=== PATIENT | female | born 1980 | race Caucasian/White ===

== ENCOUNTER 2018-06-25 01:00 | Outpatient (CLI) | END 2018-06-25 08:15 | disposition home or self-care (01) ==

== ENCOUNTER 2018-11-03 09:35 | Outpatient (CLI) | payer MEDICAID ==
[~2018-11-03] VITALS: Ht 152.4 cm; Wt 78.0 kg
[~2018-11-03 09:35] MED LIST: PREN1TAB9 PO
[2018-11-03 10:01] VITALS: BP 112/70; PULSE 90; RESP 18; Ht 152.4 cm; Wt 78.0 kg
--- NOTE | 2018-11-03 12:16 | TRIAGE ---
OB Triage Datetime Report Generated by CPN: 11/03/2018 12:15 Datetime: 11/03/2018 11:43 Stage of : OB Triage Datetime: 11/03/2018 11:00 Stage of : OB Triage Labor Evaluation Frequency: 0 Monitor Mode: External Pattern: Normal: <= 5 Contractions in 10 Minutes Resting Tone [place]: Relaxed Heart Rate FHR Baseline Rate: 155 Monitor Mode: External US Variability: Moderate 6-25 bpm Accelerations: 15X15 Decelerations: None Category: Category I Pain Presence: None/Denies Pain Type: N/A Datetime: 11/03/2018 09:58 Stage of : OB Triage Maternal Assessment Level of Consciousness: Fully Conscious DTR's/Clonus: DTRs 2+; No Clonus Headache: Denies Blurred Vision: No Respiratory Effort: Unlabored; Regular Rhythm; Equal Expansion Breath Sounds, Left: Clear and Equal Breath Sounds, Right: Clear and Equal Nausea/Vomiting: Denies RUQ Epigastric Pain: Denies Lower Extremities Edema: None Degree: None Upper Extremities Edema: None Degree: None Facial Edema: None Temperature Route: Oral Fall Risk Assessment History of Falling: (0) No Secondary Diagnosis: (0) No Ambulatory Aid: (0) Bedrest/Nurse Assist IV Therapy: (0) No Gait: (0) Normal/Bedrest/Immobile Mental Status: (0) Oriented to Own Ability Fall Score: 0 Fall Risk Score Definition: No Risk: No action required Labor Evaluation Frequency: none Monitor Mode: External Heart Rate FHR Baseline Rate: 150 Monitor Mode: External US Pain Assessment Pain Scale: 0 Datetime: 11/03/2018 09:56 Time of Arrival: 11/03/2018 09:28 EGA: 38.1 Arrived By: Ambulatory Arrived From: Home Chief Complaint: follow up for low [place], AMA Movement: Present Contractions: Denies/Absent Rupture of Membranes: Denies Vaginal Discharge: Denies Recent Sexual Intercouse: Denies Abdominal Trauma: Not Applicable Patient Complaints: Other Additional Patient Complaints: to triage for NST/ BPP for low platelets and AMA Time Provider Notified: 11/03/2018 10:57 Provider Notified: dr. ro Initial Plan: efm/ u/s
--- NOTE | 2018-11-14 12:31 | PN ---
Triage Information Date/Time Reason for visit: Uterine contractions Weeks of Gestation 38 weeks and 1 day /Para Diabetes: none Hypertention: none Objective Heart Rate: 130's Contractions: >10 Minutes Apart Disposition: Discharge Assessment/Plan 37 years old 4 para 3003 with single intrauterine at 38 weeks and 1 day complaining of uterine contractions. She states good movement. She denies nausea, vomiting, shortness of breath, chest pain, headache, visual changes, vaginal bleeding or LOF. FHR: No sign of metabolic acidosis- Category I. She has occasional uterine contractions. Sterile vaginal exam /-3/cephalic/intact membrane. No cervical changes in 2 hours interval. Symptoms and sign of labor, preeclampsia, kick count discussed with patient, she voiced understanding. All of her questions answered. -Patient was discharged home in stable condition with the appropriate discharge instructions provided. I would like patient to have close follow-up with her primary physician or outpatient clinic in 1-2 days or return to triage for worsening symptoms or any other urgent concerns. ENRIKE RAIN Nov 14, 2018 12:31
== END 2018-11-03 11:55 | disposition home or self-care (01) ==
LOC: OBT 09:35 → L-D 09:36 → OBT 11:55
PROVIDERS: ATTEND Obstetrics & Gynecology
DX: O62.9 Abnormality of forces of labor, unspecified (principal); O09.523 Supervision of elderly multigravida, third trimester; Z3A.38 38 weeks gestation of pregnancy
CPT/HCPCS: 76815; 76818; Z7500; G0463

== ENCOUNTER 2018-11-08 10:09 | Inpatient (IN) | payer MEDICAID ==
[~2018-11-08] VITALS: Ht 152.4 cm; Wt 78.1 kg
[2018-11-08 10:46] VITALS: Ht 152.4 cm; Wt 78.1 kg
[2018-11-08 10:47] VITALS: BP 114/67; PULSE 107
--- NOTE | 2018-11-08 14:21 | HP ---
Date/Time of Note Date/Time of Note DATE: 11/08/18 TIME: 14:20 OB - History Hx of Present Free Text/Dictation 38+6 wks in labor : 4 Para: 3 Care: Good Care Ultrasounds: Normal mid trimester US Obstetrical Complications: None Medical Complications: None Past Family/Social History * Past Medical, Surgical, Family and Obstetric Histories reviewed from chart. OB Admission Exam Vital Signs Vital Signs Vital Signs Date Temp Pulse Resp B/P (MAP) Pulse Ox O2 O2 Flow FiO2 Time Delivery Rate 11/08/18 98.4 107 114/67 10:47 (83) Physical Exam Abdomen: WNL Cervical Dilatation: 4cm Effacement: 75% Station: -1 Membranes: Intact Heart Rate: 140's Accelerations: Accelerations Present Decelerations: No Decelerations Varibility: Moderate Contractions on Admission: 6-10 Minutes Apart OB Assessment/Plan Reason for admission: observation Other Assessment: PMH Denies PSH Denies Plan: Expectant Management ANURADHA JONES M.D. Nov 08, 2018 14:21
[2018-11-08] MEDS ORDERED: LIDOCAINE 1% (MPF) 30 ML INJ INJ PRN (15:00)
[2018-11-08] MEDS ORDERED: BUTORPHANOL 2 MG INJ IV PRN (15:00)
[2018-11-08] MEDS ORDERED: OXYTOCIN 30 UNITS/LR 500 ML IV PRN (15:00)
[2018-11-08] MEDS ORDERED: BUTORPHANOL 1 MG INJ IV PRN (15:00)
[2018-11-08] MEDS ORDERED: CARBOPROST 250 MCG INJ IM PRN (15:00)
[2018-11-08] MEDS ORDERED: METHYLERGONOVINE 0.2 MG INJ IM PRN (15:00)
[2018-11-08] MEDS ORDERED: OXYTOCIN 30 UNITS/LR 500 ML IV SCH ×2 (15:00)
[2018-11-08] MEDS ORDERED: MISOPROSTOL 200 MCG TAB PR PRN (15:00)
[2018-11-08] MEDS: LACTATED RINGER'S 1,000 ML IV SCH (15:51)
[2018-11-09] MEDS: LACTATED RINGER'S 1,000 ML IV SCH (00:34)
[2018-11-09] MEDS: OXYTOCIN 30 UNITS/LR 500 ML IV SCH ×2 (01:20→11:20)
[2018-11-09] MEDS ORDERED: LACTATED RINGER'S 1,000 ML IV* SCH (01:20)
--- NOTE | 2018-11-09 01:25 | LDN ---
Date/Time of Note Date/Time of Note DATE: 11/09/18 TIME: 01:24 Delivery Summary of a viable baby girl weighing 3110 grams or 6# 14 oz, 18.75" long, and with Apgars of 9/9. Weeks of Gestation 39w Placenta Delivered: Spontaneously Meconium: none Episiotomy: No Perineal laceration: 0 Anesthesia type: None Estimated blood loss: 150 Sponge & Needle done & correct: Yes All needle counts correct: Yes Any foreign bodies felt in the: No (vagina) Infant Delivery Information Sex Infant Sex: female Apgars 1 Minute: 9 5 Minute: 9 Suctioning Nose & mouth suctioned at denisha: Yes Delee suction performed: No Umbilical Cord Umbilical cord with: 3 Vessels Cord presentations: no nuchal cord Cord Blood was obtained: Yes Mother & Baby Disposition Disposition Mom & Baby to Maternity; Good: Yes Baby to NICU: No JASON CHAUDHARI MD Nov 09, 2018 01:25
[2018-11-09] MEDS ORDERED: HYDROCODONE/APAP (5/325) TAB PO PRN (01:30)
[2018-11-09] MEDS ORDERED: METHYLERGONOVINE 0.2 MG INJ IM PRN (01:30)
[2018-11-09] MEDS ORDERED: CARBOPROST 250 MCG INJ IM PRN (01:30)
[2018-11-09] MEDS ORDERED: MISOPROSTOL 200 MCG TAB PR PRN (01:30)
[2018-11-09] MEDS ORDERED: OXYTOCIN 30 UNITS/LR 500 ML IV PRN (01:30)
[2018-11-09] MEDS ORDERED: LANOLIN HPA 1 PKT TOP PRN (01:30)
[2018-11-09 03:00] VITALS: BP 106/55; PULSE 75; RESP 18
[2018-11-09] MEDS: IBUPROFEN 600 MG TAB PO SCH ×3 (06:00→17:37)
[2018-11-09 08:00] VITALS: BP 98/53; PULSE 68; RESP 18
[2018-11-09 12:00] VITALS: BP 99/53; PULSE 60; RESP 18
[2018-11-09 16:32] VITALS: BP 99/63; PULSE 70; RESP 18
[2018-11-09 19:10] VITALS: BP 107/55; PULSE 69; RESP 18
--- NOTE | 2018-11-10 03:08 | DELSUM ---
Delivery Summary A-C Datetime Report Generated by CPN: 11/10/2018 03:08 DELIVERY PERSONNEL Web Content Manager: Monique, Ilana MATERNAL INFORMATION Delivery Anesthesia: None Medications in Delivery: LR with 30units Pitocin Delivery QBL (ml): 150 Placenta Cultured: No Maternal Complications: Other Other Maternal Complications: Low PLT 125 LABOR SUMMARY EDC: 11/16/2018 00:00 No. Babies in Womb: 1 Attempted: No Labor Anesthesia: None LABOR INFORMATION Reason for Induction: Not Applicable Onset of Labor: 11/08/2018 04:00 Complete Dilatation: 11/09/2018 00:47 Oxytocin: N/A Group B Beta Strep: Negative Antibiotics # of Doses: 0 Steroids Given: None Reason Steroids Not Administered: Not Applicable MEMBRANES Membranes Rupture Method: Spontaneous Rupture of Membranes: 11/09/2018 00:35 Length of Rupture (hr): 0.27 Amniotic Fluid Color: Clear Amniotic Fluid Amount: Small Amniotic Fluid Odor: None STAGES OF LABOR Stage 1 hr: 20 Stage 1 min: 47 Stage 2 hr: 0 Stage 2 min: 4 Stage 3 hr: 0 Stage 3 min: 2 Total Time in Labor hr: 20 Total Time in Labor min: 53 VAGINAL DELIVERY Episiotomy: None Laceration Extension: N/A Laceration Type: None Laceration Repair: No Initial Vag Sponge Count: 10 Final Vag Sponge Count: 10 Initial Vag Sharps Count: 1 Final Vag Sharps Count: 1 Sponge Count Correct: Yes Sharps Count Correct: Yes Count Comment: 15 instruments BABY A INFORMATION Infant Delivery Date/Time: 11/09/2018 00:51 Method of Delivery: Vaginal Born in Route : No : N/A Forceps: N/A Vacuum Extraction: N/A Shoulder Dystocia : No SHOULDER DYSTOCIA BABY A Delivery Date/Time: 11/09/2018 00:51 PRESENTATION/POSITION BABY A Presentation: Cephalic Cephalic Presentation: Vertex Breech Presentation: N/A PLACENTA INFORMATION BABY A Placenta Delivery Time : 11/09/2018 00:53 Placenta Method of Delivery: Spontaneous Placenta Status: Delivered SCORES BABY A Heart Rate 1 min: >100 bpm Resp Effort 1 min: Good Cry Reflex Irritability 1 min: Cough/Sneeze/Pulls Away Muscle Tone 1 min: Active Motion Color 1 min: Body [place], Extremit Blue Resuscitation Effort 1 min: Tactile Stimulation SCORE 1 MIN: 9 Heart Rate 5 min: >100 bpm Resp Effort 5 min: Good Cry Reflex Irritability 5 min: Cough/Sneeze/Pulls Away Muscle Tone 5 min: Active Motion Color 5 min: Body [place], Extremit Blue Resuscitation Effort 5 min: N/A SCORE 5 MIN: 9 INFANT INFORMATION BABY A Gestational Age at Delivery: 39.0 Gestational Status: Full Term- 39- 40.6 Weeks Outcome : Liveborn Condition : Stable Infant Sex: Female IDENTIFICATION/MEDS BABY A ID Band Number: [id number] ID Band Location: Right Leg; Left Arm Sensor Applied: Yes Sensor Number: [id number] Sensor Location : Cord Clamp Vitamin K Given : Not Given Erythromycin Given: Not Given WEIGHT/LENGTH BABY A Birthweight (gm): 3110 Infant Weight (lb): 6 Weight (oz): 14 Length (in): 18.75 Infant Length (cm): 47.63 CORD INFORMATION BABY A No. Cord Vessels: 3 Nuchal Cord : N/A Cord Blood Taken: Yes Suction: Mouth; Nose
[2018-11-10 03:55] VITALS: BP 97/51; PULSE 72; RESP 18
[2018-11-10] MEDS: IBUPROFEN 600 MG TAB PO SCH ×4 (05:48→18:00)
[2018-11-10 07:45] VITALS: BP 93/60; PULSE 72; RESP 17
[2018-11-10 15:52] VITALS: BP 98/60; PULSE 67; RESP 16
--- NOTE | 2018-11-10 15:54 | PN ---
Date/Time of Note Date/Time of Note DATE: 11/10/18 TIME: 15:47 OB Subjective Subjective Subjective PPD# 1 Patient is doing well. She denies nausea, vomiting, shortness of breath, chest pain, headache. She has been ambulating without difficulty, tolerating regular diet. Pain is well controlled on current medications OB Objective Objective Objective Vital Signs Date Temp Pulse Resp B/P (MAP) Pulse Ox O2 O2 Flow FiO2 Time Delivery Rate 11/10/18 97.6 72 17 93/60 (71) Room Air 07:45 General: AAO X 3, comfortable, NAD, appropriate mood and affect. ABD: +BS. Soft, non-tender. Uterus 2 cm below umbilicus Flank: No CVA tenderness (B/L) LE: Mild edema. No clubbing, cyanosis, thigh or calf tenderness (B/L). Homans 'sign is negative Laboratory Tests Test 11/09/18 08:59 11/10/18 04:40 Lab Scanned Report REFERENCE LAB [id number] White Blood Count 8.8 10^3/ul Red Blood Count 3.78 10^6/ul Hemoglobin 11.6 g/dl Hematocrit 35.0 % Mean Corpuscular Volume 92.6 fl Mean Corpuscular Hemoglobin 30.7 pg Mean Corpuscular Hemoglobin Concent 33.1 g/dl Red Cell Distribution Width 13.7 % Platelet Count 138 10^3/UL Mean Platelet Volume 11.0 fl Immature Granulocytes % 0.600 % Neutrophils % 58.4 % Lymphocytes % 32.7 % Monocytes % 6.9 % Eosinophils % 1.1 % Basophils % 0.3 % Nucleated Red Blood Cells % 0.0 /100WBC Immature Granulocytes # 0.050 10^3/ul Neutrophils # 5.1 10^3/ul Lymphocytes # 2.9 10^3/ul Monocytes # 0.6 10^3/ul Eosinophils # 0.1 10^3/ul Basophils # 0.0 10^3/ul Nucleated Red Blood Cells # 0.0 10^3/ul OB Assessment/Plan Other plan: 37 years old 4 para 4004 s/p normal vaginal delivery. PPD#1 - AF, VSS - Contraception methods with R/B/A/FR discussed - Continue care - Discharge home tomorrow - Rx and instruction given - Follow up in 2 and 6 weeks at clinic ENRIKE RAIN Nov 10, 2018 15:54
--- NOTE | 2018-11-10 15:55 | DS ---
Date/Time of Note Date/Time of Note DATE: 11/10/18 TIME: 15:54 Obstetrical Discharge Record Final Diagnosis Final Diagnosis: Term delivered Other Final Diagnosis 37 years old 4 para 4004 s/p normal vaginal delivery. PPD#1. course was unremarkable. She is ambulating and tolerating regular diet. She is voiding without difficulty. Pain is controlled on current medication. - AF, VSS - Contraception methods with R/B/A/FR discussed - Continue care - Discharge home tomorrow - Rx and instruction given - Follow up in 2 and 6 weeks at clinic Vaginal Delivery Obstetrical Delivery: Spontaneous Condition on Discharge Physical Assessment Last Vitals: Vital Signs Date Temp Pulse Resp B/P (MAP) Pulse Ox O2 O2 Flow FiO2 Time Delivery Rate 11/10/18 97.6 72 17 93/60 (71) Room Air 07:45 Voiding: Yes Bowel Movement: Yes Breast: Soft, non-tender Fundus: Firm Calf Tenderness: No Patient Condition: Stable ENRIKE RAIN Nov 10, 2018 15:55
[2018-11-10 19:05] VITALS: BP 99/55; PULSE 69; RESP 18
[2018-11-11 03:50] VITALS: BP 93/64; PULSE 73; RESP 18
[2018-11-11] MEDS: IBUPROFEN 600 MG TAB PO SCH ×4 (06:00→12:12)
[2018-11-11 08:00] VITALS: BP 99/64; PULSE 71; RESP 16
[2018-11-11] MEDS ORDERED: DIPHTH/TET/ACEL PERTUSS (ADULT) 0.5 ML VIAL IM* ONE (09:00)
== END 2018-11-11 17:13 | disposition home or self-care (01) | DRG 807 ==
LOC: OBT 10:09 → L-D 10:10 → OBT 14:20 → L-D 14:20 → MS1 11-09 02:50
PROVIDERS: ADMIT Obstetrics & Gynecology; ATTEND Obstetrics & Gynecology
PROC: 10E0XZZ Delivery of Products of Conception, External Approach (ICD-10-PCS; principal; 2018-11-09)
DX: O80 Encounter for full-term uncomplicated delivery (principal); Z37.0 Single live birth; Z3A.39 39 weeks gestation of pregnancy
CPT/HCPCS: 76818; 85025; 85610; 85730; 86592; 86850; 86900; 86901; 90715; 99464; G0463; J0595; J2590; J7120